=== PATIENT | male | born 1965 | race African-American/Black ===

== ENCOUNTER 2023-01-30 10:54 | Emergency (ER) | payer MEDICAID, OTHER ==
[~2023-01-30] VITALS: Ht 172.7 cm; Wt 114.0 kg
[~2023-01-30 10:54] MED LIST: NO HOME MEDS
[2023-01-30 11:03] VITALS: O2SAT 99
[2023-01-30 12:01] LABS: BASOPHILS % 0.7 % (0.0-2.0); EOSINOPHILS % 1.3 % (0.0-5.0); HEMATOCRIT. 33.9 % (42.0-52.0); HEMOGLOBIN. 11.7 g/dL (14.0-18.0); LYMPHOCYTES % 27.3 % (20.0-50.0); MEAN CORPUSCULAR HEMOGLOBIN 31.2 pg (28.0-32.0); MEAN CORPUSCULAR HGB CONC 34.5 g/dL (31.0-37.0); MEAN CORPUSCULAR VOLUME 90.5 fL (80.0-94.0); MEAN PLATELET VOLUME 8.9 fl (7.4-10.4); MONOCYTES % 14.2 % (2.0-8.0); NEUTROPHILS % 56.5 % (40.0-76.0); PLATELET 272 x1000/uL (130-400); RED BLOOD CELL COUNT 3.74 mill/uL (4.7-6.1); RED CELL DISTRIBUTION WIDTH 14.5 % (11.6-14.6); WHITE BLOOD COUNT 3.6 x1000/uL (4.5-11.0)
[2023-01-30 12:20] LABS: ALANINE AMINOTRANSFERASE 17 IU/L (13-61); ALBUMIN 3.2 g/dL (3.4-5.0); ASPARTATE AMINOTRANSFERASE 14 IU/L (15-37); BILIRUBIN TOTAL 0.3 mg/dL (0.1-1.0); CALCIUM 8.5 mg/dL (8.5-10.1); CARBON DIOXIDE 28 mEq/L (21-32); CHLORIDE 109 mEq/L (98-107); CREATININE 1.2 mg/dL (0.6-1.3); GLUCOSE 123 mg/dL (70-105); INDEX HEMOLYSI 1 (1-3); INDEX ICTERIC 1 (1-4); INDEX LIPEMIC 1 (1-3); POTASSIUM 4.4 mEq/L (3.5-5.1); PROTEIN TOTAL 7.1 g/dL (6.0-8.3); SODIUM 138 mEq/L (136-145); UREA NITROGEN BLOOD 19 mg/dL (7-21)
[2023-01-30 12:26] LABS: NT PRO B-TYPE NATRIURETIC PEP 740 pg/mL (5-125); TROPONIN I HIGH SENSITIVITY 51 ng/L (<78)
[2023-01-30 13:53] LABS: TROPONIN I HIGH SENSITIVITY 54 ng/L (<78)
[2023-01-30 17:06] VITALS: BP 176/107; PULSE 72; RESP 16; TEMP 98.9
== END 2023-01-30 17:10 | disposition short-term general hospital (02) ==
LOC: ER 10:54 → CANBEDREQ 01-31 23:09
DX: R55 Syncope and collapse (principal); R07.89 Other chest pain; I11.0 Hypertensive heart disease with heart failure; I50.9 Heart failure, unspecified; E11.9 Type 2 diabetes mellitus without complications
CPT/HCPCS: 80053; 82962; 83880; 85025; 84484; 36415; 71045; 93005; 99285; Z7610 ×2

== ENCOUNTER 2023-03-10 13:15 | Emergency (ER) | payer OTHER ==
[~2023-03-10] VITALS: Ht 172.7 cm; Wt 76.0 kg
[2023-03-10 13:32] VITALS: O2SAT 100
[2023-03-10 15:33] LABS: BASOPHILS % 0.7 % (0.0-2.0); EOSINOPHILS % 0.8 % (0.0-5.0); HEMATOCRIT. 35.8 % (42.0-52.0); HEMOGLOBIN. 11.9 g/dL (14.0-18.0); MEAN CORPUSCULAR HGB CONC 33.2 g/dL (31.0-37.0); MEAN CORPUSCULAR VOLUME 90.4 fL (80.0-94.0); MEAN PLATELET VOLUME 9.5 fl (7.4-10.4); MONOCYTES % 11.6 % (2.0-8.0); NEUTROPHILS % 65.9 % (40.0-76.0); PLATELET 278 x1000/uL (130-400); RED BLOOD CELL COUNT 3.96 mill/uL (4.7-6.1); RED CELL DISTRIBUTION WIDTH 14.4 % (11.6-14.6); WHITE BLOOD COUNT 5.5 x1000/uL (4.5-11.0)
[2023-03-10 15:51] LABS: CHLORIDE 105 mEq/L (98-107); INDEX HEMOLYSI 1 (1-3); INDEX ICTERIC 1 (1-4); INDEX LIPEMIC 1 (1-3); POTASSIUM 3.9 mEq/L (3.5-5.1); SODIUM 137 mEq/L (136-145)
[2023-03-10 16:00] LABS: ALANINE AMINOTRANSFERASE 17 IU/L (13-61); ALBUMIN 3.5 g/dL (3.4-5.0); ASPARTATE AMINOTRANSFERASE 10 IU/L (15-37); BILIRUBIN TOTAL 0.6 mg/dL (0.1-1.0); CALCIUM 8.7 mg/dL (8.5-10.1); CARBON DIOXIDE 29 mEq/L (21-32); CREATININE 1.3 mg/dL (0.6-1.3); GLUCOSE 170 mg/dL (70-105); NT PRO B-TYPE NATRIURETIC PEP 346 pg/mL (5-125); PROTEIN TOTAL 7.5 g/dL (6.0-8.3); TROPONIN I HIGH SENSITIVITY 51 ng/L (<78); UREA NITROGEN BLOOD 19 mg/dL (7-21)
[2023-03-10 17:22] VITALS: BP 133/70; PULSE 73; RESP 16; TEMP 97.5
== END 2023-03-10 17:35 | disposition home or self-care (01) ==
LOC: ER 13:15
DX: R55 Syncope and collapse (principal); I11.0 Hypertensive heart disease with heart failure; I50.9 Heart failure, unspecified; E11.9 Type 2 diabetes mellitus without complications; F12.90 Cannabis use, unspecified, uncomplicated
CPT/HCPCS: 36415; 71045; 80053; 83880; 84484; 85025; 93005; 99285

== ENCOUNTER 2023-09-26 11:53 | Emergency (ER) | payer OTHER ==
[~2023-09-26] VITALS: Ht 182.9 cm; Wt 102.0 kg
[2023-09-26 12:31] LABS: BASOPHILS % 0.6 % (0.0-2.0); EOSINOPHILS % 0.7 % (0.0-5.0); HEMATOCRIT. 34.3 % (42.0-52.0); HEMOGLOBIN. 11.1 g/dL (14.0-18.0); MEAN CORPUSCULAR HEMOGLOBIN 28.3 pg (28.0-32.0); MEAN CORPUSCULAR HGB CONC 32.4 g/dL (31.0-37.0); MEAN CORPUSCULAR VOLUME 87.3 fL (80.0-94.0); MEAN PLATELET VOLUME 8.3 fl (7.4-10.4); MONOCYTES % 10.1 % (2.0-8.0); NEUTROPHILS % 66.6 % (40.0-76.0); PLATELET 346 x1000/uL (130-400); RED BLOOD CELL COUNT 3.93 mill/uL (4.7-6.1); RED CELL DISTRIBUTION WIDTH 16.4 % (11.6-14.6)
[2023-09-26 12:36] LABS: ALANINE AMINOTRANSFERASE 86 IU/L (10-49); ALBUMIN 3.7 g/dL (3.2-4.8); ASPARTATE AMINOTRANSFERASE 32 IU/L (<34); BILIRUBIN TOTAL 1.2 mg/dL (0.1-1.0); CALCIUM 8.6 mg/dL (8.7-10.4); CARBON DIOXIDE 19 mEq/L (21-32); CHLORIDE 111 mEq/L (98-107); CREATININE 1.4 mg/dL (0.6-1.3); GLUCOSE 110 mg/dL (70-105); POTASSIUM 4.5 mEq/L (3.5-5.1); PROTEIN TOTAL 6.9 g/dL (6.0-8.3); SODIUM 139 mEq/L (136-145); UREA NITROGEN BLOOD 28 mg/dL (9-23)
[2023-09-26 13:24] LABS: TROPONIN I HIGH SENSITIVITY 108 ng/L (3.0-53)
[2023-09-26] MEDS: NITROGLYCERIN OINT 1GM/INCH UDPKT TD ONE (14:22)
[2023-09-26] MEDS: ASPIRIN 81MG TABLET PO ONE (14:22)
[2023-09-26] MEDS: FUROSEMIDE 40MG/4ML VIAL IV ONE (14:22)
[2023-09-26] MEDS: ALBUTEROL (0.083%) 2.5MG/3ML NEB HHN STA (14:31)
[2023-09-26 14:35] LABS: D-DIMER 1.49 mg/L FEU (<0.50); INR 1.4; PARTIAL THROMBOPLASTIN TIME 29.9 sec (23.4-31.0); PROTHROMBIN TIME 15.1 sec (9.6-11.0)
[2023-09-26 15:00] VITALS: PULSE 101; RESP 18; O2SAT 98
[2023-09-26 15:56] LABS: TROPONIN I HIGH SENSITIVITY 101 ng/L (3.0-53)
[2023-09-26] MEDS: ENOXAPARIN 120MG/0.8ML SYR SUBCUT ONE (19:05)
[2023-09-26 20:10] VITALS: BP 128/92; PULSE 87; RESP 20; TEMP 97.4
[2023-09-26] MEDS ORDERED: IOHEXOL-350 100 ML BOTTLE ONE (23:24)
== END 2023-09-26 20:31 | disposition short-term general hospital (02) ==
LOC: ER 11:53
DX: I26.99 Other pulmonary embolism without acute cor pulmonale (principal); R07.9 Chest pain, unspecified; I50.9 Heart failure, unspecified; I11.0 Hypertensive heart disease with heart failure; E11.9 Type 2 diabetes mellitus without complications; F12.90 Cannabis use, unspecified, uncomplicated
CPT/HCPCS: 80053; 83880; 85025; 85379; 85610; 85730; 84484; 36415; 71045; 71275; 94640; 93005; 96372; 96374; 99285; Q9967; Z7610 ×7; J1650; J1940